=== PATIENT | male | born 1960 | race Caucasian/White ===

== ENCOUNTER 2017-06-12 21:36 | Emergency (ER) | payer BC ==
[~2017-06-12] VITALS: Ht 175.3 cm; Wt 82.6 kg
[2017-06-12 21:46] VITALS: BP_SYST 183
[2017-06-12] MEDS ORDERED: DIPH-TET-PERTUS Vaccine 0.5 ML VIAL (ADACEL) I.M. ONE (23:00)
[2017-06-13] MEDS ORDERED: LIDOCAINE/EPI 1% 1:100000 20 ML VIAL INJ ONE (01:15)
[2017-06-13] MEDS ORDERED: IBUPROFEN 800 MG TABLET PO ONE (01:15)
[2017-06-13] MEDS ORDERED: OXYCODONE/ACETAMINOPHEN 5-325 TABLET PO ONE (01:15)
[2017-06-13 03:20] VITALS: BP_SYST 136
== END 2017-06-13 03:20 | disposition home or self-care (01) ==
LOC: SED 21:36
DX: S01.412A Laceration without foreign body of left cheek and temporomandibular area, initial encounter (principal); W20.8XXA Other cause of strike by thrown, projected or falling object, initial encounter; Y93.89 Activity, other specified; Y92.89 Other specified places as the place of occurrence of the external cause; Y99.8 Other external cause status
CPT/HCPCS: 70486-TC; 90715; 99284